=== PATIENT | female | born 1985 | race Caucasian/White ===

== ENCOUNTER 2017-01-03 00:03 | Emergency (ER) | payer MEDICAID ==
--- NOTE | 2017-01-03 00:22 | EDM.PDOC ---
ED HPI GENERAL MEDICAL PROBLEM - General Chief Complaint: PHARMACY SERVICES DIRECTOR Problem Stated Complaint: abd pain w/ Time Seen by Provider: 01/03/17 00:10 Source of Information: Reports: Patient History Limitations: Reports: No Limitations - History of Present Illness INITIAL COMMENTS - FREE TEXT/NARRATIVE: Patient is a 31 year old female at ~32 weeks gestation who presents to the ER via private vehicle with complaints of elevated blood pressure and sharp upper abdominal pain. She describes the pain as a constant sharp pain rated an 8 /10. The pain began around 1130. The patient reports she was unable to fall asleep because of the pain and the fact that she was worrying about her blood pressure being elevated. She reports that she began experiencing blurry vision, dizziness, nausea, and a headache around 1130 pm this evening so she checked her blood pressure at home and it was 194/130. She reports she has been taking her blood pressure medications as prescribed. She has been taking 200 mg labatelol in the morning and 100 mg labatelol in the evening. She reports that for about 3 hours after taking the medication her blood pressure is normal and then it becomes signficantly elevated again. She reports she has been on bed rest the past month due to elevated blood pressure and protein in her urine. She called her PHARMACY SERVICES DIRECTOR in [place] and was told to go to the nearest ER via ambulance. She reported she decided to come via private vehicle because it was just as close. Patient has no other associated symptoms. Denies vomiting, dysuria, diarrhea, constipation, chest pain, shortness of breath, seizure activity, edema, vaginal discharge, vaginal bleeding. Does report she also had preeclampsia with a previous . Her two previous pregnancies were delivered via at full term. Onset Date: 01/02/17 Onset Time: 11:30 Duration: Constant Location: Reports: Abdomen Quality: Reports: Sharp Improves with: Reports: None Worsens with: Reports: None Associated Symptoms: Reports: Headaches, Nausea/Vomiting (nausea), Other ( dizziness, blurred vision). 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 SERVICES DIRECTOR History: Reports: Other (See Below) Other OB/BYN History: h/o two C-sections Psychiatric History: Reports: Addiction, Depression, Emotional Problems, Psych Hospitalization(s), Suicidal Ideation - Past Surgical History Female Surgical History: Reports: Section Social & Family History - Tobacco Use Smoking Status *Q: Former Smoker Years of Tobacco use: 1 Packs/Tins Daily: 0.4 Second Hand Smoke Exposure: No - Alcohol Use Days Per Week of Alcohol Use: 0 - Recreational Drug Use Recreational Drug Use: Yes Drug Use in Last 12 Months: Yes Recreational Drug Type: Reports: Methamphetamine Recreational Drug Use Frequency: Binges ED ROS GENERAL - Review of Systems Review Of Systems: ROS reveals no pertinent complaints other than HPI. Constitutional: Reports: No Symptoms HEENT: Reports: Vision Change (blurry vsion), Other (tinnitus) Respiratory: Reports: No Symptoms Cardiovascular: Reports: Blood Pressure Problem, Dyspnea on Exertion, Lightheadedness. Denies: Chest Pain, Edema, Syncope Endocrine: Reports: No Symptoms GI/Abdominal: Reports: Abdominal Pain (upper abdomen). Denies: Constipation, Diarrhea : Reports: No Symptoms, Other (no vaginal bleeding or leaking fluid). Denies : Discharge, Dysuria, Flank Pain, Frequency, Hematuria, Incontinence, Urinary Retention Musculoskeletal: Reports: No Symptoms Skin: Reports: No Symptoms Neurological: Reports: Dizziness, Headache. Denies: Numbness, Tingling Psychiatric: Reports: No Symptoms Hematologic/Lymphatic: Reports: No Symptoms Immunologic: Reports: No Symptoms ED EXAM - Physical Exam Exam: See Below Exam Limited By: No Limitations General Appearance: Alert, WD/WN, Mild Distress Eye Exam: Bilateral Eye: EOMI, Normal Fundi, Normal Inspection, PERRL Head: Atraumatic, Normocephalic Neck: Normal Inspection, Supple, Non-Tender, Full Range of Motion Respiratory/Chest: No Respiratory Distress, Lungs Clear, Normal Breath Sounds, No Accessory Muscle Use, Chest Non-Tender Cardiovascular: Normal Peripheral Pulses, Regular Rate, Rhythm, No Edema, No Gallop, No JVD, No Murmur, No Rub, Other (elevated BP) GI/Abdominal Exam: Normal Bowel Sounds, Soft, Tender (upper abdomen), Other ( umbilical hernia, ). No: Guarding, Rigid, Rebound Rectal Exam: Deferred (Female) Exam: No: Vaginal Bleeding, Vaginal Discharge Heart Tones: Present Heart Tones per Min: 142 Movement: Active Back Exam: Normal Inspection, Full Range of Motion. No: CVA Tenderness (L), CVA Tenderness (R) Extremities: Normal Inspection, Normal Range of Motion, Non-Tender, Normal Capillary Refill, No Pedal Edema Neurological: Alert, Oriented, CN II-XII Intact, Normal Cognition, Normal Gait, Normal Reflexes, No Motor/Sensory Deficits Psychiatric: Normal Affect, Normal Mood Skin Exam: Warm, Dry, Intact, Normal Color, No Rash Lymphatic: No Adenopathy Course - Vital Signs Last Recorded V/S: Last Vital Signs Temp 99.1 F 01/03/17 00:04 Pulse 70 01/03/17 01:05 Resp 16 01/03/17 00:04 BP 166/126 H 01/03/17 01:05 Pulse Ox 96 01/03/17 00:04 - Orders/Labs/Meds Orders: Active Orders 24 hr Category Date Time Status Sodium Chloride 0.9% [Normal Saline] 500 ml Med 01/03/17 00:45 Active IV .BOLUS Medication Orders Sodium Chloride (Normal Saline) 500 mls @ 25 mls/hr IV .BOLUS ISAIAH Last Admin: 01/03/17 00:41 Dose: 25 mls/hr Labs: Laboratory Tests 01/03/17 01/03/17 01/03/17 Range/Units 00:35 00:35 00:35 WBC 10.0 (5.0-10.0) 10^3/uL RBC 4.00 (4.00-5.50) 10^6/uL Hgb 12.3 (12.0-16.0) g/dL Hct 35.7 L (37.0-47.0) % MCV 89.3 (82.0-94.0) fL MCH 30.8 (27.0-32.0) pg MCHC 34.5 (33.0-38.0) g/dL RDW Coeff of Evangel[place] 15.0 (11.0-15.0) % Plt Count 219 (150-400) 10^3/uL Neut % (Auto) 75.5 (35-85) % Lymph % (Auto) 17.6 (10-55) % [place] % (Auto) 5.5 (0-16) % Eos % (Auto) 1.3 (0-5) % Baso % (Auto) 0.1 (0-3) % Neut # (Auto) 7.51 H (1.80-7.00) 10^3/uL Lymph # (Auto) 1.75 (1.00-4.80) 10^3/uL [place] # (Auto) 0.55 (0.00-0.80) 10^3/uL Eos # (Auto) 0.13 (0.00-0.45) 10^3/uL Baso # (Auto) 0.01 10^3/uL PT 10.1 (9.7-12.3) SEC INR 0.94 (0.92-1.18) Sodium 137 (136-145) mEq/L Potassium 3.7 (3.5-5.0) mEq/L Chloride 104 (98-106) mEq/L Carbon Dioxide 21 (21-32) mmol/L BUN 9 (7-18) mg/dL Creatinine 0.7 (0.6-1.0) mg/dL Est Cr Clr Drug Dosing 106.70 mL/min Estimated GFR (MDRD) > 60 (>=60) mL/min Glucose 124 H (75-99) mg/dL Calcium 9.2 (8.4-10.1) mg/dL Total Bilirubin 0.5 (0.0-1.0) mg/dL AST 13 L (15-37) U/L ALT 17 (12-78) U/L Alkaline Phosphatase 53 (46-116) U/L Total Protein 6.9 (6.4-8.2) g/dL Albumin 2.5 L (3.4-5.0) g/dL Urine Color (YELLOW) Urine Appearance (CLEAR) Urine pH (4.5-8.0) Ur Specific [place] (1.003-1.020) Urine Protein (NEGATIVE) mg/dL Urine Glucose (UA) (NEGATIVE) mg/dL Urine Ketones (NEGATIVE) mg/dL Urine Occult Blood (NEGATIVE) Urine Nitrite (NEGATIVE) Urine Bilirubin (NEGATIVE) Urine Urobilinogen (0.2-1.0) EU/dL Ur Leukocyte Esterase (NEGATIVE) Urine RBC (0-5) /HPF Urine WBC (0-5) /HPF Urine Bacteria (NOT SEEN) /HPF 01/03/17 Range/Units 00:35 WBC (5.0-10.0) 10^3/uL RBC (4.00-5.50) 10^6/uL Hgb (12.0-16.0) g/dL Hct (37.0-47.0) % MCV (82.0-94.0) fL MCH (27.0-32.0) pg MCHC (33.0-38.0) g/dL RDW Coeff of [place] (11.0-15.0) % Plt Count (150-400) 10^3/uL Neut % (Auto) (35-85) % Lymph % (Auto) (10-55) % [place] % (Auto) (0-16) % Eos % (Auto) (0-5) % Baso % (Auto) (0-3) % Neut # (Auto) (1.80-7.00) 10^3/uL Lymph # (Auto) (1.00-4.80) 10^3/uL [place] # (Auto) (0.00-0.80) 10^3/uL Eos # (Auto) (0.00-0.45) 10^3/uL Baso # (Auto) 10^3/uL PT (9.7-12.3) SEC INR (0.92-1.18) Sodium (136-145) mEq/L Potassium (3.5-5.0) mEq/L Chloride (98-106) mEq/L Carbon Dioxide (21-32) mmol/L BUN (7-18) mg/dL Creatinine (0.6-1.0) mg/dL Est Cr Clr Drug Dosing mL/min Estimated GFR (MDRD) (>=60) mL/min Glucose (75-99) mg/dL Calcium (8.4-10.1) mg/dL Total Bilirubin (0.0-1.0) mg/dL AST (15-37) U/L ALT (12-78) U/L Alkaline Phosphatase (46-116) U/L Total Protein (6.4-8.2) g/dL Albumin (3.4-5.0) g/dL Urine Color Yellow (YELLOW) Urine Appearance Cloudy (CLEAR) Urine pH 6.5 (4.5-8.0) Ur Specific [place] 1.015 (1.003-1.020) Urine Protein Negative (NEGATIVE) mg/dL Urine Glucose (UA) Negative (NEGATIVE) mg/dL Urine Ketones Negative (NEGATIVE) mg/dL Urine Occult Blood Negative (NEGATIVE) Urine Nitrite Negative (NEGATIVE) Urine Bilirubin Negative (NEGATIVE) Urine Urobilinogen 0.2 (0.2-1.0) EU/dL Ur Leukocyte Esterase Negative (NEGATIVE) Urine RBC Not seen (0-5) /HPF Urine WBC Not seen (0-5) /HPF Urine Bacteria Moderate H (NOT SEEN) /HPF Meds: Medications Generic Name Dose Route Start Last Admin Trade Name Freq PRN Reason Stop Dose Admin Sodium Chloride 500 mls @ 25 mls/hr 01/03/17 00:45 01/03/17 00:41 Normal Saline IV 25 mls/hr .BOLUS ISAIAH Administration Discontinued Medications Generic Name Dose Route Start Last Admin Trade Name Freq PRN Reason Stop Dose Admin Acetaminophen 650 mg 01/03/17 02:11 01/03/17 02:15 Tylenol PO 01/03/17 02:12 650 mg NOW ONE Administration Acetaminophen Confirm 01/03/17 02:06 Tylenol Administered 01/03/17 02:07 Dose 650 mg .ROUTE .STK-MED ONE Labetalol HCl 20 mg 01/03/17 00:24 01/03/17 00:42 Normodyne IVPUSH 01/03/17 00:25 20 mg ONETIME ONE Administration Protocol Labetalol HCl 40 mg 01/03/17 00:58 01/03/17 01:05 Normodyne IVPUSH 01/03/17 00:59 40 mg NOW STA Administration Protocol - Re-Assessments/Exams Free Text/Narrative Re-Assessment/Exam: 01/03/17 01:00 Consulted with [facility]. Discussed case with Dr. Alyse Mcwilliams ([facility]), who accepted patient for transfer. Given elevated blood pressure and constant sharp upper abdominal pain without capability to ultrasound, recommend patient be transferred via air. 01/03/17 01:05 Called [facility] who will arrange for transportation. 01/03/17 01:07 Discussed labs with patient. Discussed plan of care. Risks and benefits of transfer discussed with patient. Risks of transfer include severe blood pressure elevation, worsening of condition, labor, delivery, demise, air craft crash, and enroute. Benefits of transfer include PHARMACY SERVICES DIRECTOR speciality care and intervention. Risks of non-transfer include delivery, demise, of patient and baby, not getting appropriate PHARMACY SERVICES DIRECTOR care. Benefits of non- transfer include staying in familiar environment and close to home. Patient verbalized understanding that benefit outweighs risk and is in agreement with transfer. 01/03/17 01:45 Call from [facility] that helicopter is 36 minutes away from landing at our facility. 01/03/17 02:12 Patient continues to c/o 8/10 sharp constant pain to upper abdomen. Patient also complains of headache. Tylenol administered. [facility] update- 8 minutes out. Blood pressure WNL. 01/03/17 02:34 [facility] assessing scene. Ready for transfer. Departure - Departure Time of Disposition: 02:14 Disposition: DC/Tfer to Acute Hospital 02 Condition: Fair Clinical Impression: -induced benign hypertension in third trimester, Abdominal pain during in third trimester - Discharge Information Referrals: Dylan Solorzano MD [Primary Care Provider] - Forms: ED Department Discharge - Problem List & Annotations (1) -induced benign hypertension in third trimester SNOMED Code(s): 81219462, 35712922 Code(s): O13.3 - GESTATIONAL HTN W/O SIGNIFICANT PROTEINURIA, THIRD TRIMESTER Status: Acute Priority: High Current Visit: Yes (2) Abdominal pain during in third trimester SNOMED Code(s): 230510321 Code(s): O26.893 - OTH RELATED CONDITIONS, THIRD TRIMESTER; R10.9 - UNSPECIFIED ABDOMINAL PAIN Status: Acute Priority: High Current Visit: Yes - Problem List Review Problem List Initiated/Reviewed/Updated: Yes - My Orders Last 24 Hours: My Active Orders 01/03/17 00:45 Sodium Chloride 0.9% [Normal Saline] 500 ml IV .BOLUS - Assessment/Plan Last 24 Hours: My Active Orders 01/03/17 00:45 Sodium Chloride 0.9% [Normal Saline] 500 ml IV .BOLUS Plan: BP stable at time of transfer. Administered a 20 mg and 40 mg dose of labatelol. See nurses notes. Tylenol administered for pain. Transfer via helicopter to [facility]. Dr. Alyse Mciwlliams accepting PHARMACY SERVICES DIRECTOR
[2017-01-03] MEDS ORDERED: Labetalol 100 MG/20 ML MDV IVPUSH ONE (00:24)
[2017-01-03] MEDS ORDERED: Sodium Chloride 0.9% 500 ML IV SCH (00:45)
[2017-01-03 00:52] LABS: CHLORIDE,CL 104 mEq/L (98-106); SODIUM,NA 137 mEq/L (136-145)
[2017-01-03] MEDS ORDERED: Labetalol 100 MG/20 ML MDV IVPUSH STA (00:58)
[2017-01-03 01:05] VITALS: BP 166/126
[2017-01-03] MEDS ORDERED: Acetaminophen 325 MG Tab ONE (02:06)
[2017-01-03] MEDS ORDERED: Acetaminophen 325 MG Tab PO ONE (02:11)
== END 2017-01-03 02:35 ==
LOC: CC.ED 00:03
DX: O13.3 Gestational [pregnancy-induced] hypertension without significant proteinuria, third trimester (principal); O26.93 Pregnancy related conditions, unspecified, third trimester; R10.9 Unspecified abdominal pain; Z87.891 Personal history of nicotine dependence; Z3A.32 32 weeks gestation of pregnancy
CPT/HCPCS: 36415; 80053; 81001; 85025; 85610; 96361; 96374; 99285; A9270; J7040

== ENCOUNTER 2019-10-03 07:14 | Emergency (ER) | payer MEDICAID ==
[2019-10-03 07:26] VITALS: PULSE 70
[2019-10-03 07:44] VITALS: BP 148/95
--- NOTE | 2019-10-03 07:46 | EDM.PDOC ---
ED HPI GENERAL MEDICAL PROBLEM - General Chief Complaint: Abdominal Pain Stated Complaint: abd Time Seen by Provider: 10/03/19 07:40 Source of Information: Reports: Patient History Limitations: Reports: No Limitations - History of Present Illness INITIAL COMMENTS - FREE TEXT/NARRATIVE: States that she has had increasing lower abdominal pain that is progressively getting worse over the last 3 months. It gets worse with her periods and her periods have been much worse. She will have pain and then have "bloody slimy" discharge noted. She states that about midnight last night t was getting worse until she came to the ER for evaluation. She denies any fevers with it. Has history of ovarian cysts with her daughter. 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 Psychiatric History: Reports: Addiction, Depression, Emotional Problems, Psych Hospitalization(s), Suicidal Ideation - Past Surgical History GI Surgical History: Reports: Cholecystectomy, Colonoscopy, Hernia, Abdominal Other GI Surgeries/Procedures: cholecystectomy in 2009 Female Surgical History: Reports: Section Social & Family History - Family History Family Medical History: Noncontributory - Tobacco Use Smoking Status *Q: Never Smoker - Caffeine Use Caffeine Use: Reports: None - Recreational Drug Use Recreational Drug Use: No - Living Situation & Occupation Living situation: Reports: with Significant Other ED ROS GENERAL - Review of Systems Review Of Systems: See Below Constitutional: Denies: Fever, Chills HEENT: Reports: No Symptoms Respiratory: Reports: No Symptoms Cardiovascular: Reports: No Symptoms GI/Abdominal: Reports: Abdominal Pain. Denies: Constipation, Diarrhea : Reports: Discharge, Pain Musculoskeletal: Reports: No Symptoms Skin: Reports: No Symptoms Neurological: Reports: No Symptoms ED EXAM, GI/ABD - Physical Exam Exam: See Below Exam Limited By: No Limitations General Appearance: Alert, WD/WN, No Apparent Distress Ears: Normal External Exam Throat/Mouth: Normal Inspection, Normal Oropharynx Head: Atraumatic, Normocephalic Neck: Normal Inspection, Supple Respiratory/Chest: No Respiratory Distress, Lungs Clear Cardiovascular: Regular Rate, Rhythm, No Edema GI/Abdominal Exam: Normal Bowel Sounds, Soft, Tender (to lower quadrants bilaterally.) (Female) Exam: Normal External Exam, Normal Speculum Exam, Adnexal Tenderness (worse on the right than on the left), Cervical Discharge (minimal). No: Enlarged Uterus, Vaginal Bleeding Back Exam: No: CVA Tenderness (L), CVA Tenderness (R) Extremities: Normal Inspection, Normal Range of Motion Neurological: Alert, Oriented Skin Exam: Warm, Dry Course - Vital Signs Last Recorded V/S: Last Vital Signs Temp 96.7 F L 10/03/19 07:22 Pulse 70 10/03/19 07:22 Resp 18 10/03/19 07:22 BP 148/95 H 10/03/19 07:22 Pulse Ox 96 10/03/19 07:22 - Orders/Labs/Meds Orders: Active Orders 24 hr Category Date Time Status Pelvis Non OB Comp [US] Stat Exams 10/03/19 07:50 Taken Transvaginal Non OB [US] Stat Exams 10/03/19 07:50 Taken CULTURE GENITAL [RM] Stat Lab 10/03/19 07:51 Received CULTURE URINE [RM] Stat Lab 10/03/19 07:31 Received Labs: Laboratory Tests 10/03/19 10/03/19 10/03/19 Range/Units 07:31 07:40 07:40 WBC 8.4 (5.0-10.0) 10^3/uL RBC 4.28 (4.00-5.50) 10^6/uL Hgb 13.8 (12.0-16.0) g/dL Hct 38.9 (37.0-47.0) % MCV 90.9 (82.0-94.0) fL MCH 32.2 H (27.0-32.0) pg MCHC 35.5 (33.0-38.0) g/dL RDW Coeff of [place] 14.1 (11.0-15.0) % Plt Count 204 (150-400) 10^3/uL Neut % (Auto) 67.1 (35-85) % Lymph % (Auto) 24.1 (10-55) % [place] % (Auto) 7.4 (0-16) % Eos % (Auto) 1.2 (0-5) % Baso % (Auto) 0.2 (0-3) % Neut # (Auto) 5.63 (1.80-7.00) 10^3/uL Lymph # (Auto) 2.02 (1.00-4.80) 10^3/uL [place] # (Auto) 0.62 (0.00-0.80) 10^3/uL Eos # (Auto) 0.10 (0.00-0.45) 10^3/uL Baso # (Auto) 0.02 10^3/uL C-Reactive Protein 3.4 H (0.2-0.8) mg/dL Urine Color Yellow (YELLOW) Urine Appearance Cloudy (CLEAR) Urine pH 6.5 (4.5-8.0) Ur Specific [place] 1.020 (1.003-1.020) Urine Protein 100 H (NEGATIVE) mg/dL Urine Glucose (UA) Negative (NEGATIVE) mg/dL Urine Ketones Negative (NEGATIVE) mg/dL Urine Occult Blood Moderate H (NEGATIVE) Urine Nitrite Negative (NEGATIVE) Urine Bilirubin Negative (NEGATIVE) Urine Urobilinogen 0.2 (0.2-1.0) EU/dL Ur Leukocyte Esterase Large H (NEGATIVE) Urine RBC 0-5 (0-5) /HPF Urine WBC 75-100 H (0-5) /HPF Urine WBC Clumps Many H (NOT SEEN) /HPF Ur Epithelial Cells Few H (NOT SEEN) /HPF Urine Bacteria Few H (NOT SEEN) /HPF Urine HCG, Qual 10/03/19 Range/Units 07:51 WBC (5.0-10.0) 10^3/uL RBC (4.00-5.50) 10^6/uL Hgb (12.0-16.0) g/dL Hct (37.0-47.0) % MCV (82.0-94.0) fL MCH (27.0-32.0) pg MCHC (33.0-38.0) g/dL RDW Coeff of [place] (11.0-15.0) % Plt Count (150-400) 10^3/uL Neut % (Auto) (35-85) % Lymph % (Auto) (10-55) % [place] % (Auto) (0-16) % Eos % (Auto) (0-5) % Baso % (Auto) (0-3) % Neut # (Auto) (1.80-7.00) 10^3/uL Lymph # (Auto) (1.00-4.80) 10^3/uL [place] # (Auto) (0.00-0.80) 10^3/uL Eos # (Auto) (0.00-0.45) 10^3/uL Baso # (Auto) 10^3/uL C-Reactive Protein (0.2-0.8) mg/dL Urine Color (YELLOW) Urine Appearance (CLEAR) Urine pH (4.5-8.0) Ur Specific [place] (1.003-1.020) Urine Protein (NEGATIVE) mg/dL Urine Glucose (UA) (NEGATIVE) mg/dL Urine Ketones (NEGATIVE) mg/dL Urine Occult Blood (NEGATIVE) Urine Nitrite (NEGATIVE) Urine Bilirubin (NEGATIVE) Urine Urobilinogen (0.2-1.0) EU/dL Ur Leukocyte Esterase (NEGATIVE) Urine RBC (0-5) /HPF Urine WBC (0-5) /HPF Urine WBC Clumps (NOT SEEN) /HPF Ur Epithelial Cells (NOT SEEN) /HPF Urine Bacteria (NOT SEEN) /HPF Urine HCG, Qual Negative Meds: Medications Discontinued Medications Generic Name Dose Route Start Last Admin Trade Name Freq PRN Reason Stop Dose Admin Sodium Chloride 1,000 mls @ 999 mls/hr 10/03/19 07:59 10/03/19 08:59 Normal Saline IV 10/03/19 08:59 999 mls/hr .BOLUS ONE Administration Levofloxacin/Dextrose 500 mg/ 100 mls @ 100 mls/hr 10/03/19 09:58 10/03/19 10:05 Premix IV 10/03/19 10:57 100 mls/hr ONETIME ONE Administration Ketorolac Tromethamine 30 mg 10/03/19 08:45 10/03/19 08:48 Toradol IVPUSH 10/03/19 08:46 30 mg ONETIME ONE Administration Ondansetron HCl 4 mg 10/03/19 09:00 10/03/19 09:23 Zofran IVPUSH 10/03/19 09:01 4 mg NOW STA Administration - Re-Assessments/Exams Free Text/Narrative Re-Assessment/Exam: 10/03/19 1045 In to discuss results of pelvic US as normal without cysts noted. She does have UTI on lab results which we will treat with IV dose of levaquin and liter of fluids. Departure - Departure Time of Disposition: 11:07 Disposition: Home, Self-Care 01 Condition: Good Clinical Impression: UTI (urinary tract infection) Qualifiers: Urinary tract infection type: acute cystitis Hematuria presence: with hematuria Qualified Code(s): N30.01 - Acute cystitis with hematuria - Discharge Information *PRESCRIPTION DRUG MONITORING PROGRAM REVIEWED*: Not Applicable *COPY OF PRESCRIPTION DRUG MONITORING REPORT IN PATIENT ROCIO: Not Applicable Instructions: Urinary Tract Infection, Adult Referrals: Joselyn Riggs PA-C [Primary Care Provider] - Forms: ED Department Discharge Additional Instructions: Push fluids as much as possible levaquin 250 mg daily for 10 days tylenol or advil as needed for discomfort will call with culture report when available. Sepsis Event Note (ED) - Evaluation Sepsis Screening Result: No Definite Risk - Problem List & Annotations (1) UTI (urinary tract infection) SNOMED Code(s): 57129175 Code(s): N39.0 - URINARY TRACT INFECTION, SITE NOT SPECIFIED Status: Acute Qualifiers: Urinary tract infection type: acute cystitis Hematuria presence: with hematuria Qualified Code(s): N30.01 - Acute cystitis with hematuria - Problem List Review Problem List Initiated/Reviewed/Updated: Yes - My Orders Last 24 Hours: My Active Orders 10/03/19 07:31 CULTURE URINE [RM] Stat 10/03/19 07:50 Pelvis Non OB Comp [US] Stat Transvaginal Non OB [US] Stat 10/03/19 07:51 CULTURE GENITAL [RM] Stat - Assessment/Plan Last 24 Hours: My Active Orders 10/03/19 07:31 CULTURE URINE [RM] Stat 10/03/19 07:50 Pelvis Non OB Comp [US] Stat Transvaginal Non OB [US] Stat 10/03/19 07:51 CULTURE GENITAL [RM] Stat
[2019-10-03] MEDS ORDERED: Sodium Chloride 0.9% 1,000 ML IV ONE (07:59)
[2019-10-03] MEDS ORDERED: Ketorolac 30 MG/ML SDV IVPUSH ONE (08:45)
[2019-10-03] MEDS ORDERED: Ondansetron 4 MG/2 ML SDV IVPUSH STA (09:00)
[2019-10-03] MEDS ORDERED: Levofloxacin/Dextrose 5%-Water 500 MG in Premix Bag 1 BAG IV ONE (09:58)
== END 2019-10-03 11:35 | disposition home or self-care (01) ==
LOC: CC.ED 07:14
DX: N30.01 Acute cystitis with hematuria (principal); I10 Essential (primary) hypertension
CPT/HCPCS: 36415; 76830; 76856; 81001; 81025; 85025; 86140; 87070; 87086; 87088; 87186; 96365; 96375; 99284-25; J1885; J1956; J2405; J7030

== ENCOUNTER 2020-06-18 13:23 | Emergency (ER) | payer MEDICAID ==
--- NOTE | 2020-06-18 14:24 | EDM.PDOC ---
ED HPI GENERAL MEDICAL PROBLEM - General Chief Complaint: General Stated Complaint: HIGH BLOOD PRESSURE Time Seen by Provider: 06/18/20 14:05 Source of Information: Reports: Patient, RN History Limitations: Reports: No Limitations - History of Present Illness INITIAL COMMENTS - FREE TEXT/NARRATIVE: States that she has been having difficulty controlling her BP for the last 3 mon ths and has had several med changes and has been on the current regime for about a month and her BP has been fairly stable. Today she felt hot and a little dizzy so took her BP with a wrist cuff and it was 255/238 so came to the ER. When arriving here her BP was initially 144/86. Currently she has appt to see cardiology, nephrology, GI and primary care in [place]. She is also scheduled for sleep study as part of her workup as to why her BP is suddenly so high. Currently she is feeling well. 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[employer] [place]ILN History: h/o two C-sections Psychiatric History: Reports: Addiction, Depression, Emotional Problems, Psych Hospitalization(s), Suicidal Ideation - Past Surgical History GI Surgical History: Reports: Cholecystectomy, Colonoscopy, Hernia, Abdominal Other GI Surgeries/Procedures: cholecystectomy in 2009 Female Surgical History: Reports: Section Social & Family History - Family History Family Medical History: No Pertinent Family History - Tobacco Use Tobacco Use Status *Q: Former Tobacco User Years of Tobacco use: 1 Packs/Tins Daily: 1 Used Tobacco, but Quit: Yes Month/Year Tobacco Last Used: 4 - Caffeine Use Caffeine Use: Reports: Soda - Recreational Drug Use Recreational Drug Use: No - Living Situation & Occupation Living situation: Reports: with Significant Other ED ROS GENERAL - Review of Systems Review Of Systems: See Below Constitutional: Denies: Fever, Chills Respiratory: Reports: No Symptoms Cardiovascular: Reports: No Symptoms GI/Abdominal: Denies: Abdominal Pain Musculoskeletal: Reports: No Symptoms Neurological: Reports: Headache. Denies: Confusion, Dizziness ED EXAM, GENERAL - Physical Exam Exam: See Below Exam Limited By: No Limitations General Appearance: Alert, WD/WN, No Apparent Distress Ears: Normal Canal, Normal TMs Throat/Mouth: Normal Inspection, Normal Oropharynx Head: Atraumatic, Normocephalic Neck: Normal Inspection, Supple, Non-Tender, Full Range of Motion Respiratory/Chest: No Respiratory Distress, Lungs Clear Cardiovascular: Regular Rate, Rhythm, No Edema GI/Abdominal: Soft Extremities: No Pedal Edema, Normal Capillary Refill Neurological: Alert, Oriented Skin Exam: Warm, Dry #1 Interpretation EKG Date: 06/18/20 Rhythm: NSR [place]: Normal P-Wave: Present QRS: Normal ST-T: Normal QT: Normal Comparison: NA - No Prior EKG Course - Vital Signs Last Recorded V/S: Last Vital Signs Temp 98.4 F 06/18/20 13:52 Pulse 73 06/18/20 13:52 Resp 18 06/18/20 13:52 BP 144/86 H 06/18/20 13:52 Pulse Ox 96 06/18/20 13:52 - Orders/Labs/Meds Orders: Active Orders 24 hr Category Date Time Status BASIC METABOLIC PANEL,BMP [CHEM] Stat Lab 06/18/20 14:10 Ordered CBC WITH AUTO DIFF [HEME] Stat Lab 06/18/20 14:10 Ordered CREATINE KINASE,CK [CHEM] Stat Lab 06/18/20 14:10 Ordered LACTATE DEHYDROGENASE,LDH [CHEM] Stat Lab 06/18/20 14:10 Ordered TROPONIN I [CHEM] Stat Lab 06/18/20 14:10 Ordered EKG 12 Lead [EK] Stat Ther 06/18/20 13:53 Ordered - Re-Assessments/Exams Free Text/Narrative Re-Assessment/Exam: 06/18/20 14:42 In to discuss the lab results and the EKG results as normal Will discharge at this time. Departure - Departure Time of Disposition: 14:42 Disposition: Home, Self-Care 01 Condition: Good Clinical Impression: Hypertension Qualifiers: Hypertension type: essential hypertension Qualified Code(s): I10 - Essential (primary) hypertension - Discharge Information *PRESCRIPTION DRUG MONITORING PROGRAM REVIEWED*: Not Applicable *COPY OF PRESCRIPTION DRUG MONITORING REPORT IN PATIENT ROCIO: Not Applicable Instructions: Managing Your Hypertension Additional Instructions: encouraged her to get a BP cuff that goes around her arm rather than wrist. Bring to next appt to compare as to what they match up to If any symptoms reoccur then return to the clinic or the ER Sepsis Event Note (ED) - Evaluation Sepsis Screening Result: No Definite Risk - Focused Exam Vital Signs: Vital Signs Temp Pulse Resp BP Pulse Ox 06/18/20 13:52 98.4 F 73 18 144/86 H 96 - Problem List & Annotations (1) Hypertension SNOMED Code(s): 14789767 Code(s): I10 - ESSENTIAL (PRIMARY) HYPERTENSION Status: Acute Priority: High Qualifiers: Hypertension type: essential hypertension Qualified Code(s): I10 - Essential (primary) hypertension - Problem List Review Problem List Initiated/Reviewed/Updated: Yes - My Orders Last 24 Hours: My Active Orders 06/18/20 13:53 EKG 12 Lead [EK] Stat 06/18/20 14:10 BASIC METABOLIC PANEL,BMP [CHEM] Stat CBC WITH AUTO DIFF [HEME] Stat CREATINE KINASE,CK [CHEM] Stat LACTATE DEHYDROGENASE,LDH [CHEM] Stat TROPONIN I [CHEM] Stat - Assessment/Plan Last 24 Hours: My Active Orders 06/18/20 13:53 EKG 12 Lead [EK] Stat 06/18/20 14:10 BASIC METABOLIC PANEL,BMP [CHEM] Stat CBC WITH AUTO DIFF [HEME] Stat CREATINE KINASE,CK [CHEM] Stat LACTATE DEHYDROGENASE,LDH [CHEM] Stat TROPONIN I [CHEM] Stat
[2020-06-18 14:37] LABS: CHLORIDE,CL 103 mEq/L (98-106); SODIUM,NA 143 mEq/L (136-145)
[2020-06-18 14:59] VITALS: BP 148/83; PULSE 67
== END 2020-06-18 14:50 | disposition home or self-care (01) ==
LOC: CC.ED 13:23
DX: I10 Essential (primary) hypertension (principal); Z87.891 Personal history of nicotine dependence
CPT/HCPCS: 36415; 80048; 82550; 83615; 84484; 85025; 93005; 99283-25

== ENCOUNTER 2020-06-23 20:57 | Observation (INO) | payer MEDICAID ==
[2020-06-23] MEDS ORDERED: cloNIDine 0.1 MG Tab PO STA (21:36)
--- NOTE | 2020-06-23 22:29 | EDM.PDOC ---
ED HPI GENERAL MEDICAL PROBLEM - General Chief Complaint: General Stated Complaint: severe headache Time Seen by Provider: 06/23/20 21:25 Source of Information: Reports: Patient History Limitations: Reports: No Limitations - History of Present Illness INITIAL COMMENTS - FREE TEXT/NARRATIVE: Jessica is a 34 yo female who presents to the ED with complaints of a right sided headache since Monday. She states she has been dealing with high blood pressure for the last 3 months. Has had multiple tests done as she has been having erratic blood pressures. She admits the same thing happened to her at onset and had a dull with occasional sharp headaches to the right side of her forehead. She admits tonight it was the worst it has been. She is scheduled to see cardiology, nephrology, family practice and gastroenterology on Monday at [facility]. She is currently taking 4 different blood pressure medications. States she has been multiple different doses in the past and seems if they increase some she will get low blood pressures. She has underwent ultrasound of the kidney which didn't show any problems with the renal arteries. States she did have a benign mass on one of her kidneys but they didn't feel it was causing her high blood pressure. Admits to history of thyroid disease and had been on levothyroxine in the past but nothing as of recently. States they told her that her thyroid is normal. She has also had a Holter monitor when she was in [place] but hasn't received the results of those tests. She was recently seen by optometry and was told she has an astigmatism and is waiting for glasses. She states she was cooking tonight and started to get a severe pain. Denies any light sensitivities. States her right eye seems blurrier than the left. She admits to ringing in her right ear as well. Doesn't get it in the left ear. 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 Psychiatric History: Reports: Addiction, Depression, Emotional Problems, Psych Hospitalization(s), Suicidal Ideation - Past Surgical History GI Surgical History: Reports: Cholecystectomy, Colonoscopy, Hernia, Abdominal Other GI Surgeries/Procedures: cholecystectomy in 2010 Female Surgical History: Reports: Section Social & Family History - Family History Family Medical History: No Pertinent Family History - Tobacco Use Tobacco Use Status *Q: Former Tobacco User Years of Tobacco use: 1 Packs/Tins Daily: 1 Used Tobacco, but Quit: Yes Month/Year Tobacco Last Used: 14 mos - Caffeine Use Caffeine Use: Reports: None - Living Situation & Occupation Living situation: Reports: with Significant Other ED ROS GENERAL - Review of Systems Review Of Systems: Comprehensive ROS is negative, except as noted in HPI. Cardiovascular: Reports: Blood Pressure Problem. Denies: Chest Pain, Dyspnea on Exertion, Lightheadedness, Palpitations Neurological: Reports: Headache, Pre-Existing Deficit. Denies: Trouble Speaking, Difficulty Walking, Change in Speech Psychiatric: Reports: No Symptoms ED EXAM, GENERAL - Physical Exam Exam: See Below Exam Limited By: No Limitations General Appearance: Alert, No Apparent Distress Eye Exam: Bilateral Eye: EOMI, Normal Inspection, PERRL Ears: Normal External Exam, Normal Canal, Hearing Grossly Normal, Normal TMs Nose: Normal Inspection, Normal Mucosa, No Blood Throat/Mouth: Normal Inspection, Normal Lips, Normal Teeth, Normal Voice, No Airway Compromise Head: Atraumatic, Normocephalic Neck: Normal Inspection, Supple Respiratory/Chest: No Respiratory Distress, Lungs Clear, Normal Breath Sounds, No Accessory Muscle Use Cardiovascular: Normal Peripheral Pulses, Regular Rate, Rhythm, No Edema, No Gallop GI/Abdominal: Normal Bowel Sounds, Soft, Non-Tender, No Organomegaly, No Distention Extremities: Normal Inspection, No Pedal Edema Neurological: Alert, Oriented, CN II-XII Intact, Normal Cognition, No Motor/Sensory Deficits Psychiatric: Normal Affect, Normal Mood Skin Exam: Warm, Dry, Intact, Normal Color Course - Vital Signs Last Recorded V/S: Last Vital Signs Temp 98.5 F 04/27/21 22:12 Pulse 64 06/23/20 22:12 Resp 16 06/23/20 22:12 BP 148/98 H 06/23/20 22:12 Pulse Ox 97 06/23/20 22:12 - Orders/Labs/Meds Orders: Active Orders 24 hr Category Date Time Status Patient Status Manage Transfer [TRANSFER] Routine ADT 06/24/20 00:07 Active Head wo Cont [CT] Stat Exams 06/23/20 22:03 Taken Resuscitation Status Routine Resus Stat 06/24/20 00:08 Ordered Labs: Laboratory Tests 06/23/20 06/23/20 06/23/20 Range/Units 22:03 22:03 22:57 WBC 9.5 (5.0-10.0) 10^3/uL RBC 3.98 L (4.00-5.50) 10^6/uL Hgb 12.6 (12.0-16.0) g/dL Hct 35.6 L (37.0-47.0) % MCV 89.4 (82.0-94.0) fL MCH 31.7 (27.0-32.0) pg MCHC 35.4 (33.0-38.0) g/dL RDW Coeff of Evangelina 13.2 (11.0-15.0) % Plt Count 260 (150-400) 10^3/uL Neut % (Auto) 68.0 (35-85) % Lymph % (Auto) 25.0 (10-55) % [place] % (Auto) 5.4 (0-16) % Eos % (Auto) 1.4 (0-5) % Baso % (Auto) 0.2 (0-3) % Neut # (Auto) 6.47 (1.80-7.00) 10^3/uL Lymph # (Auto) 2.38 (1.00-4.80) 10^3/uL [place] # (Auto) 0.51 (0.00-0.80) 10^3/uL Eos # (Auto) 0.13 (0.00-0.45) 10^3/uL Baso # (Auto) 0.02 10^3/uL ESR 32 H (0-20) mm/hr Sodium 138 (136-145) mEq/L Potassium 3.6 (3.5-5.0) mEq/L Chloride 100 (98-106) mEq/L Carbon Dioxide 27 (21-32) mmol/L BUN 22 H (7-18) mg/dL Creatinine 1.3 H (0.6-1.0) mg/dL Est Cr Clr Drug Dosing 55.90 mL/min Estimated GFR (MDRD) 47 L (>=60) mL/min Glucose 107 H (75-99) mg/dL Calcium 9.3 (8.4-10.1) mg/dL Urine Color Light yellow (YELLOW) Urine Appearance Clear (CLEAR) Urine pH 5.5 (4.5-8.0) Ur Specific [place] 1.010 (1.003-1.020) Urine Protein Negative (NEGATIVE) mg/dL Urine Glucose (UA) Negative (NEGATIVE) mg/dL Urine Ketones Negative (NEGATIVE) mg/dL Urine Occult Blood Negative (NEGATIVE) Urine Nitrite Negative (NEGATIVE) Urine Bilirubin Negative (NEGATIVE) Urine Urobilinogen 0.2 (0.2-1.0) EU/dL Ur Leukocyte Esterase Negative (NEGATIVE) Urine RBC Not seen (0-5) /HPF Urine WBC Not seen (0-5) /HPF Meds: Medications Discontinued Medications Generic Name Dose Route Start Last Admin Trade Name Freq PRN Reason Stop Dose Admin Clonidine HCl 0.1 mg 06/23/20 21:36 06/23/20 21:38 Clonidine 0.1 Mg Tab PO 06/23/20 21:37 0.1 mg STAT STA Administration Departure - Departure Time of Disposition: 23:07 Disposition: Refer to Observation Clinical Impression: Cluster headache syndrome Qualifiers: Headache chronicity pattern: episodic headache Intractability: not intractable Qualified Code(s): G44.019 - Episodic cluster headache, not intractable - Discharge Information *PRESCRIPTION DRUG MONITORING PROGRAM REVIEWED*: No *COPY OF PRESCRIPTION DRUG MONITORING REPORT IN PATIENT ROCIO: No Referrals: PCP,Unknown [Primary Care Provider] - Forms: ED Department Discharge Sepsis Event Note (ED) - Evaluation Sepsis Screening Result: No Definite Risk - Focused Exam Vital Signs: Vital Signs Temp Pulse Resp BP BP Pulse Ox 06/23/20 22:12 98.5 F 64 16 148/98 H 97 06/23/20 21:54 65 14 158/96 H 100 06/23/20 21:41 97.5 F 64 15 154/105 H 98 06/23/20 21:38 154/105 H 06/23/20 21:16 97.5 F 63 16 146/95 H 97 06/23/20 21:00 97.5 F 77 18 148/104 H 98 - Problem List & Annotations (1) Hypertension SNOMED Code(s): 85455604 Code(s): I10 - ESSENTIAL (PRIMARY) HYPERTENSION Status: Acute Priority: High Current Visit: No Qualifiers: Hypertension type: other secondary hypertension Qualified Code(s): I15.8 - Other secondary hypertension (2) Cluster headache syndrome SNOMED Code(s): 260401238 Code(s): G44.009 - CLUSTER HEADACHE SYNDROME, UNSPECIFIED, NOT INTRACTABLE Status: Acute Current Visit: Yes Qualifiers: Headache chronicity pattern: episodic headache Intractability: not intractable Qualified Code(s): G44.019 - Episodic cluster headache, not intractable - My Orders Last 24 Hours: My Active Orders 06/23/20 22:03 Head wo Cont [CT] Stat 06/24/20 00:07 Patient Status Manage Transfer [TRANSFER] Routine 06/24/20 00:08 Resuscitation Status Routine - Assessment/Plan Admission H&P: Please use this note as an admission H&P Last 24 Hours: My Active Orders 06/23/20 22:03 Head wo Cont [CT] Stat 06/24/20 00:07 Patient Status Manage Transfer [TRANSFER] Routine 06/24/20 00:08 Resuscitation Status Routine Plan: Laboratory work did show slightly elevated sed rate. CT of the head showed a subtle region of hypoattenuation in the right frontal lobe subcortical whit matter, which the radiologist felt was indeterminate. Did recommend having patient scheduled with neurology and/or obtaining an MRI of the brain. Did not feel it was urgent. Did state it could be some demyelinating disease, such as MS. Will admit observation to Dr. Chairez's services. Dr. chairez consulted and agrees with admission. Will give IV steroids to see if any relief with IV fluids. Will closely monitor blood pressure as well.
[2020-06-24] MEDS ORDERED: Ondansetron 4 MG/2 ML SDV IV PRN (01:05)
[2020-06-24] MEDS ORDERED: Temazepam 15 MG Cap PO PRN (01:05)
[2020-06-24] MEDS ORDERED: methylPREDNISolone Sodium Succinate 125 MG/2 ML SDV IVPUSH SCH (01:05)
[2020-06-24] MEDS ORDERED: Sodium Chloride 0.9% 1,000 ML IV SCH (01:05)
[2020-06-24] MEDS: Acetaminophen 325 MG Tab PO PRN ×5 (01:52→19:59)
[2020-06-24] MEDS: CARVEDILOL 12.5 MG PO SCH ×2 (08:48→18:07)
[2020-06-24] MEDS: LISINOPRIL 40 MG PO SCH ×2 (08:51→21:59)
[2020-06-24] MEDS: AMLODIPINE 2.5 MG PO SCH ×3 (09:11→20:32)
[2020-06-24] MEDS: CHLORTHALIDONE 25 MG PO SCH (09:21)
[2020-06-24] MEDS ORDERED: Ketorolac 30 MG/ML SDV IVPUSH PRN (10:45)
[2020-06-24] MEDS ORDERED: AMLODIPINE 2.5 MG PO SCH (20:00)
--- NOTE | 2020-06-24 23:17 | PCM.PN ---
- General Info Date of Service: 06/24/20 Subjective Update: Jessica is a 34 yo female who was admitted to the hospital from the ED last night with complaints of a headache. She has been having a dull with sharp at times headache to the right side of her head since last Monday. Patient has history of similar headache roughly 3 months ago. Admits it lasted about 8 days at that time. She has been having problems with his blood pressure as well. She currently is taking multiple medications for this. Patient has appointments on Monday with cardiology, nephrology and family medicine in [place]. Patient did have CT scan of the brain with no acute findings. Questioning of demyelinating disease and recommend follow up with neurology or MRI of the brain. Patient continues to have headache. Was given Solu Medrol and started on IV fluids yesterday. Admits to minimal relief. Continues to have a headache today. Denies any nausea or emesis today. States she is really tired. Rates the headache from 6-8 out of 10. Admits to having some blurriness in the right eye which has not worsened. Denies any new onset of neurological deficits. Functional Status: Reports: Tolerating Diet, Ambulating, Urinating - Review of Systems General: Reports: No Symptoms HEENT: Reports: Visual Changes (blurriness right eye) Pulmonary: Reports: No Symptoms Cardiovascular: Reports: No Symptoms Gastrointestinal: Reports: No Symptoms Genitourinary: Reports: No Symptoms Musculoskeletal: Reports: No Symptoms Skin: Reports: No Symptoms Neurological: Reports: Headache. Denies: Dizziness, Syncope, Difficulty Walking, Change in Speech Psychiatric: Reports: No Symptoms - Patient Data Vitals - Most Recent: Last Vital Signs Temp 97.4 F 06/24/20 20:00 Pulse 66 06/24/20 20:00 Resp 16 06/24/20 20:00 BP 108/50 L 06/24/20 22:02 Pulse Ox 93 L 06/24/20 20:00 Weight - Most Recent: 238 lb 12.8 oz Med Orders - Current: Current Medications Acetaminophen (Acetaminophen 325 Mg Tab) 650 mg PO Q4H PRN PRN Reason: Pain (Mild 1-3)/fever Last Admin: 06/24/20 19:59 Dose: 650 mg Documented by: Amlodipine Besylate (Amlodipine 2.5 Mg Tab Pt Own) 2.5 mg PO BEDTIME ISAIAH Last Admin: 06/24/20 22:02 Dose: Not Given Documented by: Carvedilol (Carvedilol 12.5 Mg Tab Pt Own) 12.5 mg PO BIDMEALS COUNT INCLUDES THE [facility] Last Admin: 06/24/20 18:07 Dose: 12.5 mg Documented by: Chlorthalidone (Chlorthalidone 25 Mg Tab Pt Own) 25 mg PO DAILY COUNT INCLUDES THE [facility] Last Admin: 06/24/20 09:21 Dose: 25 mg Documented by: Ketorolac Tromethamine (Ketorolac 30 Mg/Ml Sdv) 15 mg IVPUSH Q6H PRN PRN Reason: Headache Stop: 06/29/20 10:45 Last Admin: 06/24/20 12:25 Dose: 15 mg Documented by: Methylprednisolone Sodium Succinate (Methylprednisolone Sodium Succinate 125 Mg/2 Ml Sdv) 62.5 mg IVPUSH Q24H COUNT INCLUDES THE [facility] Last Admin: 06/24/20 01:53 Dose: 62.5 mg Documented by: Lisinopril 40 Mg Tab (Pt Own) 0 each PO BID COUNT INCLUDES THE [facility] Last Admin: 06/24/20 21:59 Dose: 1 each Documented by: Ondansetron HCl (Ondansetron 4 Mg/2 Ml Sdv) 4 mg IV Q4H PRN PRN Reason: Nausea/Vomiting Temazepam (Temazepam 15 Mg Cap) 15 mg PO BEDTIME PRN PRN Reason: Sleep Last Admin: 06/24/20 20:00 Dose: 15 mg Documented by: Discontinued Medications Amlodipine Besylate (Amlodipine 2.5 Mg Tab Pt Own) 2.5 mg PO DAILY COUNT INCLUDES THE [facility] Last Admin: 06/24/20 20:32 Dose: 2.5 mg Documented by: Clonidine HCl (Clonidine 0.1 Mg Tab) 0.1 mg PO STAT STA Stop: 06/23/20 21:37 Last Admin: 06/23/20 21:38 Dose: 0.1 mg Documented by: Sodium Chloride (Normal Saline) 1,000 mls @ 150 mls/hr IV ASDIRECTED COUNT INCLUDES THE [facility] Last Admin: 06/24/20 01:53 Dose: 150 mls/hr Documented by: - Exam General: Alert, Oriented, Cooperative, No Acute Distress Lungs: Clear to Auscultation, Normal Respiratory Effort Cardiovascular: Regular Rate, Regular Rhythm GI/Abdominal Exam: Normal Bowel Sounds, Soft Extremities: Normal Inspection, No Pedal Edema Skin: Warm, Dry, Intact Neurological: No New Focal Deficit, Normal Speech, Normal Tone, Sensation Intact Psy/Mental Status: Alert, Normal Affect, Normal Mood - Patient Data Result Diagrams: 06/23/20 22:03 06/23/20 22:03 Sepsis Event Note - Evaluation Sepsis Screening Result: No Definite Risk - Focused Exam Vital Signs: Vital Signs Temp Pulse Pulse Resp BP BP Pulse Ox 06/24/20 22:02 108/50 L 06/24/20 20:32 108/50 L 06/24/20 20:00 97.4 F 66 16 108/50 L 93 L 06/24/20 19:55 108/50 L 06/24/20 18:07 58 L 115/54 L 06/24/20 15:54 98.5 F 58 L 16 115/54 L 94 L 06/24/20 11:31 97.8 F 62 16 125/61 95 - Problem List & Annotations (1) Hypertension SNOMED Code(s): 06567171 Code(s): I10 - ESSENTIAL (PRIMARY) HYPERTENSION Status: Acute Priority: High Current Visit: No Qualifiers: Hypertension type: other secondary hypertension Qualified Code(s): I15.8 - Other secondary hypertension (2) Cluster headache syndrome SNOMED Code(s): 731664678 Code(s): G44.009 - CLUSTER HEADACHE SYNDROME, UNSPECIFIED, NOT INTRACTABLE Status: Acute Current Visit: Yes Qualifiers: Headache chronicity pattern: episodic headache Intractability: not intractable Qualified Code(s): G44.019 - Episodic cluster headache, not intractable - Problem List Review Problem List Initiated/Reviewed/Updated: Yes - My Orders Last 24 Hours: My Active Orders 06/24/20 00:08 Resuscitation Status Routine 06/24/20 01:05 Acetaminophen [TylenoL] 650 mg PO Q4H PRN Ondansetron [Zofran] 4 mg IV Q4H PRN Temazepam [Restoril] 15 mg PO BEDTIME PRN methylPREDNISolone Sod Succ [Solu-MEDROL] 62.5 mg IVPUSH Q24H 06/24/20 01:05 Patient Status [ADT] Routine Ambulate [RC] .PRN Cardiac Monitoring [RC] 08,1999 Oxygen Therapy [RC] .PRN Up ad Yvette [RC] .PRN Vital Signs [RC] 0000,0400,0800,1200,1600,2000 06/24/20 Breakfast 2 Gram Sodium Diet [DIET] 06/24/20 09:00 Chlorthalidone 25 mg PO DAILY Non-Formulary Medication [NF Drug] 0 each PO BID carvediloL [Coreg] 12.5 mg PO BIDMEALS 06/24/20 10:45 Ketorolac [Toradol] 15 mg IVPUSH Q6H PRN 06/24/20 20:00 amLODIPine [Norvasc] 2.5 mg PO BEDTIME - Plan Plan:: Patient continues to have chronic headache. Will give IV Toradol today to see if any relief. Will repeat labs in the am, will include magnesium level. Discussed patient's condition with Dr. Chairez today and will closely monitor. IV fluids will be discontinued today.
[2020-06-25] MEDS: Acetaminophen 325 MG Tab PO PRN ×2 (04:42→08:37)
[2020-06-25 07:33] LABS: CHLORIDE,CL 104 mEq/L (98-106); SODIUM,NA 142 mEq/L (136-145)
[2020-06-25] MEDS: LISINOPRIL 40 MG PO SCH (08:29)
[2020-06-25] MEDS: CARVEDILOL 12.5 MG PO SCH (08:29)
[2020-06-25] MEDS: CHLORTHALIDONE 25 MG PO SCH (08:31)
--- NOTE | 2020-06-25 10:40 | PCM.DCSUM1 ---
Discharge Summary - Hospital Course HPI Initial Comments: Jessica is a 34 yo female who was admitted to the hospital from the ED Monday night with complaints of a headache. She had been having a dull with sharp at times headache to the right side of her head since last Monday. Patient has history of similar headache roughly 3 months ago. Admits it lasted about 8 days at that time. She has been having problems with his blood pressure as well. She currently is taking multiple medications for this. Patient has appointments on Monday with cardiology, nephrology and family medicine in [place]. Patient did have CT scan of the brain with no acute findings. Questioning of demyelinating disease and recommend follow up with neurology or MRI of the brain. Diagnosis: Stroke: No - Discharge Data Discharge Date: 06/25/20 Discharge Disposition: Home, Self-Care 01 Condition: Fair - Referral to Home Health Primary Care Physician: Hoa Seo NP - Discharge Diagnosis/Problem(s) (1) Hypertension SNOMED Code(s): 88125816 ICD Code: I10 - ESSENTIAL (PRIMARY) HYPERTENSION Status: Acute Priority: High Current Visit: No Qualifiers: Hypertension type: other secondary hypertension Qualified Code(s): I15.8 - Other secondary hypertension (2) Cluster headache syndrome SNOMED Code(s): 550016254 ICD Code: G44.009 - CLUSTER HEADACHE SYNDROME, UNSPECIFIED, NOT INTRACTABLE Status: Acute Current Visit: Yes Qualifiers: Headache chronicity pattern: episodic headache Intractability: not intractable Qualified Code(s): G44.019 - Episodic cluster headache, not intractable - Patient Instructions Diet: Usual Diet as Tolerated Activity: As Tolerated Notify Provider of: Fever, Increased Pain, Nausea and/or Vomiting - Discharge Plan *PRESCRIPTION DRUG MONITORING PROGRAM REVIEWED*: No *COPY OF PRESCRIPTION DRUG MONITORING REPORT IN PATIENT ROCIO: No Prescriptions/Med Rec: Acetaminophen/HYDROcodone [[place] 325-5 MG] 1 tab PO Q6H #12 tablet Home Medications: Home Meds Chlorthalidone 25 mg PO DAILY 06/18/20 [History] carvediloL [Coreg] 12.5 mg PO BID 06/18/20 [History] lisinopriL [Lisinopril] 20 mg PO BID 06/18/20 [History] Acetaminophen/HYDROcodone [[place] 325-5 MG] 1 tab PO Q6H #12 tablet 06/25/20 [Rx] Patient Handouts: Pseudotumor Cerebri, Hypertension, Adult Forms: ED Department Discharge Referrals: PCP,Unknown [Ordering Only Provider] - - Discharge Summary/Plan Comment DC Time >30 min.: No Discharge Summary/Plan Comment: Will discharge Jessica today. Dr. Chairez in to discuss patient's symptoms and work up for pseudotumor cerebri as well. Recommends neurology consultation and ge tting MRI. Patient was to be set up for MRI here tomorrow but patient is unable to have it done here d/t specialty appointments in [place] tomorrow. 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 Discussed pain and will manage with Tylenol. May use [place] for break thru pain. Patient will be discharged today in satisfactory condition. Jessica in agreement with discharge at this time. - General Info Date of Service: 06/25/20 Subjective Update: Jessica is a 34 yo female who was admitted to the hospital from the ED last night with complaints of a headache. She has been having a dull with sharp at times headache to the right side of her head since last Monday. Patient has history of similar headache roughly 3 months ago. Admits it lasted about 8 days at that time. She has been having problems with his blood pressure as well. She currently is taking multiple medications for this. Patient has appointments on Monday with cardiology, nephrology and family medicine in [place]. Patient did have CT scan of the brain with no acute findings. Questioning of demyelinating disease and recommend follow up with neurology or MRI of the brain. Patient continues to have headache. Was given Solu Medrol and started on IV fluids yesterday. Admits to minimal relief. Continues to have a headache today. Denies any nausea or emesis today. States she is really tired. Rates the headache from 6-8 out of 10. Admits to having some blurriness in the right eye which has not worsened. Denies any new onset of neurological deficits. 06/25/2020 Jessica continues to have a dull headache this morning. States the Toradol yesterday did help but she did not like the way it made her feel. She states Tylenol does give her some relief as well. Was able to sleep last night. Blood pressure has been stable since admission. Amlodipine held last night. Functional Status: Reports: Tolerating Diet, Ambulating, Urinating. Denies: New Symptoms - Review of Systems General: Reports: No Symptoms HEENT: Reports: No Symptoms Pulmonary: Reports: No Symptoms Cardiovascular: Reports: No Symptoms Gastrointestinal: Reports: No Symptoms Genitourinary: Reports: No Symptoms Musculoskeletal: Reports: No Symptoms Neurological: Reports: Headache Psychiatric: Reports: No Symptoms - Patient Data Vitals - Most Recent: Last Vital Signs Temp 98 F 06/25/20 04:00 Pulse 56 L 06/25/20 08:29 Resp 16 06/25/20 04:00 BP 129/63 06/25/20 08:29 Pulse Ox 96 06/25/20 04:00 Weight - Most Recent: 238 lb 12.8 oz Lab Results - Last 24 hrs: Laboratory Results - last 24 hr 06/25/20 06/25/20 Range/Units 06:55 06:55 WBC 10.2 H (5.0-10.0) 10^3/uL RBC 3.85 L (4.00-5.50) 10^6/uL Hgb 12.1 (12.0-16.0) g/dL Hct 34.9 L (37.0-47.0) % MCV 90.6 (82.0-94.0) fL MCH 31.4 (27.0-32.0) pg MCHC 34.7 (33.0-38.0) g/dL RDW Coeff of Evangelina 13.2 (11.0-15.0) % Plt Count 239 (150-400) 10^3/uL Neut % (Auto) 73.9 (35-85) % Lymph % (Auto) 19.9 (10-55) % [place] % (Auto) 5.6 (0-16) % Eos % (Auto) 0.3 (0-5) % Baso % (Auto) 0.3 (0-3) % Neut # (Auto) 7.53 H (1.80-7.00) 10^3/uL Lymph # (Auto) 2.03 (1.00-4.80) 10^3/uL [place] # (Auto) 0.57 (0.00-0.80) 10^3/uL Eos # (Auto) 0.03 (0.00-0.45) 10^3/uL Baso # (Auto) 0.03 10^3/uL ESR 30 H (0-20) mm/hr Sodium 142 (136-145) mEq/L Potassium 3.6 (3.5-5.0) mEq/L Chloride 104 (98-106) mEq/L Carbon Dioxide 27 (21-32) mmol/L BUN 16 (7-18) mg/dL Creatinine 1.0 (0.6-1.0) mg/dL Est Cr Clr Drug Dosing 72.68 mL/min Estimated GFR (MDRD) > 60 (>=60) mL/min Glucose 106 H (75-99) mg/dL Calcium 8.8 (8.4-10.1) mg/dL Med Orders - Current: Current Medications Acetaminophen (Acetaminophen 325 Mg Tab) 650 mg PO Q4H PRN PRN Reason: Pain (Mild 1-3)/fever Last Admin: 06/25/20 08:37 Dose: 650 mg Documented by: Amlodipine Besylate (Amlodipine 2.5 Mg Tab Pt Own) 2.5 mg PO BEDTIME [facility] Last Admin: 06/24/20 22:02 Dose: Not Given Documented by: Carvedilol (Carvedilol 12.5 Mg Tab Pt Own) 12.5 mg PO BIDMEALS [facility] Last Admin: 06/25/20 08:29 Dose: 12.5 mg Documented by: Chlorthalidone (Chlorthalidone 25 Mg Tab Pt Own) 25 mg PO DAILY [facility] Last Admin: 06/25/20 08:31 Dose: 25 mg Documented by: Ketorolac Tromethamine (Ketorolac 30 Mg/Ml Sdv) 15 mg IVPUSH Q6H PRN PRN Reason: Headache Stop: 06/29/20 10:45 Last Admin: 06/24/20 12:25 Dose: 15 mg Documented by: Lisinopril 40 Mg Tab (Pt Own) 0 each PO BID [facility] Last Admin: 06/25/20 08:29 Dose: 1 each Documented by: Ondansetron HCl (Ondansetron 4 Mg/2 Ml Sdv) 4 mg IV Q4H PRN PRN Reason: Nausea/Vomiting Temazepam (Temazepam 15 Mg Cap) 15 mg PO BEDTIME PRN PRN Reason: Sleep Last Admin: 06/24/20 20:00 Dose: 15 mg Documented by: Discontinued Medications Amlodipine Besylate (Amlodipine 2.5 Mg Tab Pt Own) 2.5 mg PO DAILY [facility] Last Admin: 06/24/20 20:32 Dose: 2.5 mg Documented by: Clonidine HCl (Clonidine 0.1 Mg Tab) 0.1 mg PO STAT STA Stop: 06/23/20 21:37 Last Admin: 06/23/20 21:38 Dose: 0.1 mg Documented by: Sodium Chloride (Normal Saline) 1,000 mls @ 150 mls/hr IV ASDIRECTED [facility] Last Admin: 06/24/20 01:53 Dose: 150 mls/hr Documented by: Methylprednisolone Sodium Succinate (Methylprednisolone Sodium Succinate 125 Mg/2 Ml Sdv) 62.5 mg IVPUSH Q24H [facility] Last Admin: 06/24/20 01:53 Dose: 62.5 mg Documented by: - Exam General: Reports: Alert, Oriented, Cooperative, No Acute Distress Lungs: Reports: Clear to Auscultation, Normal Respiratory Effort Cardiovascular: Reports: Regular Rate, Regular Rhythm GI/Abdominal Exam: Normal Bowel Sounds, Soft Extremities: Normal Inspection, No Pedal Edema Neurological: Reports: No New Focal Deficit Psy/Mental Status: Reports: Alert, Normal Affect, Normal Mood
[2020-06-25 13:53] VITALS: BP 154/82; PULSE 58
== END 2020-06-25 13:15 | disposition home or self-care (01) ==
LOC: CC.ED 20:57 → CC.MS 23:07 → UNDOADMOB 23:07 → CC.MS 06-24 00:08
PROVIDERS: ADMIT Physician Assistant Medical; ATTEND Family Medicine
DX: G44.019 Episodic cluster headache, not intractable (principal); I15.8 Other secondary hypertension; G93.2 Benign intracranial hypertension; Z87.891 Personal history of nicotine dependence
CPT/HCPCS: 36415; 70450; 80048; 81001; 85025; 85651; 96374; 96375; 99285-25; A9270-GY; G0378; J1885; J2930; J7030

== ENCOUNTER 2020-12-23 18:02 | Emergency (ER) | payer MEDICAID ==
[2020-12-23 18:07] VITALS: PULSE 89
[2020-12-23 18:21] VITALS: BP 145/87
--- NOTE | 2020-12-23 18:37 | EDM.PDOC ---
ED HPI GENERAL MEDICAL PROBLEM - General Chief Complaint: Respiratory Problem Stated Complaint: "feel like crap", covid + for 2 days Time Seen by Provider: 12/23/20 18:10 Source of Information: Reports: Patient History Limitations: Reports: No Limitations - History of Present Illness INITIAL COMMENTS - FREE TEXT/NARRATIVE: Jessica is a 35 year old female who presents to ER with complaints of cough, fatigue, headache and malaise. Started noting sinus congestion and mild cough on Monday, had lost her taste and smell. Was tested on Monday and was positive. Today, is feeling worse. Coughing more frequently. Chest discomfort but denies shortness of breath. Has been able to take fluids in well. No fevers. "mostly concerned about the ongoing cough". Onset: Gradual Duration: Day(s):, Getting Worse Location: Reports: Chest, Generalized Quality: Reports: Ache Severity: Moderate Improves with: Reports: Rest Associated Symptoms: Reports: Cough, Headaches, Loss of Appetite, Malaise, Weakness. Denies: Confusion, Chest Pain, Fever/Chills, Nausea/Vomiting, Shortness of Breath Treatments [employer]OR: Reports: Acetaminophen Generalized Pain Score (Numeric/FACES): 10 - Related Data Allergies Allergy/AdvReac Type Severity Reaction Status Date / Time No Known Allergies Allergy Verified 06/23/20 21:11 Home Meds: Home Meds Chlorthalidone 25 mg PO DAILY 06/18/20 [History] carvediloL [Coreg] 12.5 mg PO BID 06/18/20 [History] lisinopriL [Lisinopril] 20 mg PO BID 06/18/20 [History] Acetaminophen/HYDROcodone [[place] 325-5 MG] 1 tab PO Q6H #12 tablet 06/25/20 [Rx] Benzonatate [Tessalon Perle] 200 mg PO TID PRN #30 capsule 12/23/20 [Rx] Past Medical History Cardiovascular History: Reports: Hypertension Other Cardiovascular History: HTN during [employer] History: Reports: Other (See Below) Other [employer] History: h/o two C-sections Psychiatric History: Reports: Addiction, Depression, Emotional Problems, Psych Hospitalization(s), Suicidal Ideation - Past Surgical History GI Surgical History: Reports: Cholecystectomy, Colonoscopy, Hernia, Abdominal Other GI Surgeries/Procedures: cholecystectomy in 2009 Female Surgical History: Reports: Section Social & Family History - Family History Family Medical History: No Pertinent Family History - Tobacco Use Tobacco Use Status *Q: Never Tobacco User - Caffeine Use Caffeine Use: Reports: Coffee - Recreational Drug Use Recreational Drug Use: No - Living Situation & Occupation Living situation: Reports: with Significant Other ED ROS GENERAL - Review of Systems Review Of Systems: See Below Constitutional: Reports: Malaise, Weakness, Fatigue, Decreased Appetite. Denies: Fever, Chills HEENT: Reports: Rhinitis, Throat Pain. Denies: Ear Pain Respiratory: Reports: Cough. Denies: Shortness of Breath, Sputum Cardiovascular: Denies: Chest Pain, Edema, Lightheadedness Endocrine: Reports: Fatigue GI/Abdominal: Reports: Diarrhea, Decreased Appetite. Denies: Abdominal Pain, Nausea, Vomiting : Reports: No Symptoms Musculoskeletal: Reports: No Symptoms Skin: Reports: No Symptoms Neurological: Reports: Headache, Weakness Psychiatric: Reports: No Symptoms ED EXAM, GENERAL - Physical Exam Exam: See Below Exam Limited By: No Limitations General Appearance: Alert, WD/WN, No Apparent Distress Ears: Normal External Exam, Normal TMs Nose: Normal Inspection, Nasal Drainage Throat/Mouth: Normal Inspection, Normal Oropharynx Head: Normocephalic Neck: Normal Inspection, Supple, Non-Tender Respiratory/Chest: No Respiratory Distress, Lungs Clear, Normal Breath Sounds Cardiovascular: Regular Rate, Rhythm, No Edema GI/Abdominal: Normal Bowel Sounds, Soft, Non-Tender Extremities: Normal Inspection, No Pedal Edema Neurological: Alert, Oriented Skin Exam: Warm, Dry Course - Vital Signs Last Recorded V/S: Last Vital Signs Temp 97.9 F 12/23/20 18:03 Pulse 89 12/23/20 18:03 Resp 18 12/23/20 18:03 BP 145/87 H 12/23/20 18:03 Pulse Ox 98 12/23/20 18:03 - Re-Assessments/Exams Free Text/Narrative Re-Assessment/Exam: Vital signs are normal. Oxygen sat 98%. Lung sounds are clear. Discussed covid symptoms, treatment plan. Is obese, has hypertension, hyperlipidemia. Discussed MABs. Read risks and benefits. Will return tomorrow for this. Departure - Departure Time of Disposition: 18:31 Disposition: Home, Self-Care 01 Condition: Fair Clinical Impression: COVID-19 - Discharge Information *PRESCRIPTION DRUG MONITORING PROGRAM REVIEWED*: No *COPY OF PRESCRIPTION DRUG MONITORING REPORT IN PATIENT ROCIO: No Prescriptions: Benzonatate [Tessalon Perle] 200 mg PO TID PRN #30 capsule PRN Reason: Cough Instructions: COVID-19 Frequently Asked Questions, Symptoms of COVID-19 - CDC (04/20/2020) Referrals: PCP,None [Primary Care Provider] - Forms: ED Department Discharge Additional Instructions: 1. Push fluids 2. Alternate tylenol with ibuprofen for fever or discomfort 3. Lie prone as much as able. Be active. 4. Call [phone] after 0900 to arrange for monoclonal antibodies. Will need to provide a positive covid test result to qualify for this infusion 5. Tessalon pearles 200 mg three times a day as needed 6. Call or return with any questions or concerns. Sepsis Event Note (ED) - Evaluation Sepsis Screening Result: No Definite Risk
== END 2020-12-23 18:50 | disposition home or self-care (01) ==
LOC: CC.ED 18:02
DX: U07.1 COVID-19 (principal); I10 Essential (primary) hypertension; Z79.899 Other long term (current) drug therapy
CPT/HCPCS: 99283

== ENCOUNTER 2022-08-28 12:33 | Emergency (ER) | payer BC, MEDICAID ==
[2022-08-28] MEDS ORDERED: Metoprolol Tartrate 5 MG/5 ML SDV IVPUSH ONE (13:06)
[2022-08-28 13:12] LABS: BASOPHILS ABSOLUTE AUTO 0.03 10^3/uL (0.00-0.50); BASOPHILS PERCENT AUTO 0.4 % (0-1); EOSINOPHILS ABSOLUTE AUTO 0.15 10^3/uL (0.00-1.50); EOSINOPHILS PERCENT AUTO 2.2 % (0-6); HEMOGLOBIN 12.9 g/dL (12.0-16.0); IMMATURE GRAN ABSOLUTE AUTO 0.01 10^3/uL (0.00-0.49); IMMATURE GRAN PERCENT AUTO 0.1 % (0.0-4.9); LYMPHOCYTES ABSOLUTE AUTO 1.49 10^3/uL (0.60-5.00); LYMPHOCYTES PERCENT AUTO 21.9 % (24-44); MEAN CORPUSCULAR HEMOGLOBIN 29.3 pg (27.0-32.0); MEAN CORPUSCULAR HGB CONC 34.9 g/dL (32.0-36.0); MEAN CORPUSCULAR VOLUME 84.1 fL (83.0-97.0); MONOCYTES ABSOLUTE AUTO 0.31 10^3/uL (0.00-1.50); MONOCYTES PERCENT AUTO 4.6 % (0-10); NEUTROPHILS ABSOLUTE AUTO 4.82 x10^3/uL (1.80-8.00); NEUTROPHILS PERCENT AUTO 70.8 % (41-71); PLATELET COUNT,PLT 255 10^3/uL (150-400); WHITE BLOOD CELL COUNT,WBC 6.8 10^3/uL (4.0-11.0)
[2022-08-28 13:24] LABS: ALBUMIN 3.5 g/dL (3.4-5.0); BILIRUBIN TOTAL 0.8 mg/dL (0.0-1.0); CALCIUM 9.1 mg/dL (8.4-10.1); EST CRCL DRUG DOSING (CG) 68.45 mL/min; POTASSIUM,K 4.4 mEq/L (3.5-5.0); PROTEIN TOTAL,TP 7.5 g/dL (6.4-8.2)
[2022-08-28] MEDS ORDERED: cloNIDine 0.1 MG Tab PO STA (14:06)
[2022-08-28 14:33] VITALS: BP 174/109; PULSE 58
[2022-08-28] MEDS ORDERED: Metoprolol Succinate 25 MG Tab.ER PO STA (14:50)
== END 2022-08-28 15:10 | disposition home or self-care (01) ==
LOC: CC.ED 12:33
DX: I15.8 Other secondary hypertension (principal); Z79.899 Other long term (current) drug therapy; Z72.0 Tobacco use
CPT/HCPCS: 36415; 80053; 85025; 93005; 96374; 99283; A9270; J3490; 93010; 99284

== ENCOUNTER 2022-08-31 12:21 | Observation (INO) | payer BC, MEDICAID ==
[2022-08-31 12:51] LABS: APPEARANCE,URINE CLEAR (CLEAR); BILIRUBIN,URINE NEGATIVE (NEGATIVE); COLOR,URINE YELLOW (YELLOW); GLUCOSE,URINE NEGATIVE (NEGATIVE); KETONES,URINE NEGATIVE (NEGATIVE); LEUKOCYTE ESTERASE,URINE NEGATIVE (NEGATIVE); NITRITE,URINE NEGATIVE (NEGATIVE); OCCULT BLOOD,URINE NEGATIVE (NEGATIVE); PH,URINE 5.5 (4.5-8.0); PROTEIN,URINE NEGATIVE (NEGATIVE); UROBILINOGEN,URINE 0.2 EU/dL (0.2-1.0)
[2022-08-31 12:57] LABS: BACTERIA,URINE OCCASIONAL /HPF (NOT SEEN); EPITHELIAL CELLS,URINE OCCASIONAL /HPF (NOT SEEN); RBC,URINE NOT SEEN /HPF (0-5); WBC,URINE 0-5 /HPF (0-5)
[2022-08-31] MEDS ORDERED: Lisinopril 20 MG Tab PO STA (12:59)
[2022-08-31 13:17] LABS: BASOPHILS ABSOLUTE AUTO 0.02 10^3/uL (0.00-0.50); BASOPHILS PERCENT AUTO 0.3 % (0-1); EOSINOPHILS ABSOLUTE AUTO 0.14 10^3/uL (0.00-1.50); EOSINOPHILS PERCENT AUTO 1.9 % (0-6); HEMATOCRIT 41.2 % (37.0-47.0); HEMOGLOBIN 14.1 g/dL (12.0-16.0); IMMATURE GRAN ABSOLUTE AUTO 0.01 10^3/uL (0.00-0.49); IMMATURE GRAN PERCENT AUTO 0.1 % (0.0-4.9); LYMPHOCYTES PERCENT AUTO 20.5 % (24-44); MEAN CORPUSCULAR HEMOGLOBIN 29.1 pg (27.0-32.0); MEAN CORPUSCULAR HGB CONC 34.2 g/dL (32.0-36.0); MEAN CORPUSCULAR VOLUME 85.1 fL (83.0-97.0); MONOCYTES ABSOLUTE AUTO 0.32 10^3/uL (0.00-1.50); MONOCYTES PERCENT AUTO 4.4 % (0-10); NEUTROPHILS ABSOLUTE AUTO 5.32 x10^3/uL (1.80-8.00); NEUTROPHILS PERCENT AUTO 72.8 % (41-71); PLATELET COUNT,PLT 267 10^3/uL (150-400); RED BLOOD CELL COUNT 4.84 x10^6/uL (4.00-5.50); WHITE BLOOD CELL COUNT,WBC 7.3 10^3/uL (4.0-11.0)
[2022-08-31] MEDS ORDERED: Ondansetron 4 MG/2 ML SDV IV PRN (13:23)
[2022-08-31] MEDS ORDERED: hydrALAZINE 20 MG/ML SDV IVPUSH PRN (13:23)
[2022-08-31] MEDS ORDERED: Ondansetron 4 MG Tab.DIS PO PRN (13:23)
[2022-08-31] MEDS ORDERED: Sodium Chloride 0.9% 10 ML Syringe FLUSH PRN (13:23)
[2022-08-31] MEDS ORDERED: Acetaminophen 325 MG Tab PO PRN (13:23)
[2022-08-31 13:31] LABS: ALBUMIN 3.8 g/dL (3.4-5.0); BILIRUBIN TOTAL 0.8 mg/dL (0.0-1.0); CALCIUM 9.5 mg/dL (8.4-10.1); CREATININE 0.9 mg/dL (0.6-1.0); EST CRCL DRUG DOSING (CG) 79.25 mL/min; MAGNESIUM 1.9 mg/dL (1.8-2.4); POTASSIUM,K 4.7 mEq/L (3.5-5.0); PROTEIN TOTAL,TP 7.9 g/dL (6.4-8.2)
[2022-08-31] MEDS ORDERED: Ketorolac 30 MG/ML SDV IVPUSH ONE (15:58)
[2022-08-31] MEDS: Spironolactone 25 MG Tab PO SCH (16:00)
[2022-08-31] MEDS ORDERED: Sodium Chloride 0.9% 1,000 ML IV ONE (16:40)
[2022-08-31] MEDS: Lisinopril 20 MG Tab PO SCH (19:41)
[2022-09-01 07:31] LABS: BASOPHILS ABSOLUTE AUTO 0.02 10^3/uL (0.00-0.50); BASOPHILS PERCENT AUTO 0.2 % (0-1); EOSINOPHILS ABSOLUTE AUTO 0.17 10^3/uL (0.00-1.50); EOSINOPHILS PERCENT AUTO 1.9 % (0-6); HEMATOCRIT 35.8 % (37.0-47.0); HEMOGLOBIN 12.3 g/dL (12.0-16.0); IMMATURE GRAN ABSOLUTE AUTO 0.02 10^3/uL (0.00-0.49); IMMATURE GRAN PERCENT AUTO 0.2 % (0.0-4.9); LYMPHOCYTES ABSOLUTE AUTO 1.69 10^3/uL (0.60-5.00); LYMPHOCYTES PERCENT AUTO 19.2 % (24-44); MEAN CORPUSCULAR HEMOGLOBIN 29.6 pg (27.0-32.0); MEAN CORPUSCULAR HGB CONC 34.4 g/dL (32.0-36.0); MEAN CORPUSCULAR VOLUME 86.3 fL (83.0-97.0); MONOCYTES ABSOLUTE AUTO 0.46 10^3/uL (0.00-1.50); MONOCYTES PERCENT AUTO 5.2 % (0-10); NEUTROPHILS ABSOLUTE AUTO 6.46 x10^3/uL (1.80-8.00); NEUTROPHILS PERCENT AUTO 73.3 % (41-71); PLATELET COUNT,PLT 238 10^3/uL (150-400); RED BLOOD CELL COUNT 4.15 x10^6/uL (4.00-5.50); WHITE BLOOD CELL COUNT,WBC 8.8 10^3/uL (4.0-11.0)
[2022-09-01] MEDS: Spironolactone 25 MG Tab PO SCH (07:38)
[2022-09-01] MEDS: Lisinopril 20 MG Tab PO SCH ×3 (07:38→20:18)
[2022-09-01 07:57] LABS: CALCIUM 8.6 mg/dL (8.4-10.1); EST CRCL DRUG DOSING (CG) 71.33 mL/min; MAGNESIUM 1.7 mg/dL (1.8-2.4); POTASSIUM,K 4.4 mEq/L (3.5-5.0)
[2022-09-01] MEDS ORDERED: Metoprolol Succinate 25 MG Tab.ER PO SCH (08:00)
[2022-09-01] MEDS ORDERED: Iopamidol 755 Mg/ML 100 ML Bottle IVPUSH ONE ×2 (10:22→11:54)
[2022-09-01] MEDS: Enoxaparin 40 MG/0.4 ML Syringe SUBCUT SCH (14:11)
[2022-09-01] MEDS: NIFEdipine 30 MG Tab.ER PO SCH (14:12)
[2022-09-02 07:42] LABS: BASOPHILS ABSOLUTE AUTO 0.02 10^3/uL (0.00-0.50); BASOPHILS PERCENT AUTO 0.3 % (0-1); EOSINOPHILS ABSOLUTE AUTO 0.15 10^3/uL (0.00-1.50); EOSINOPHILS PERCENT AUTO 2.2 % (0-6); HEMATOCRIT 34.7 % (37.0-47.0); HEMOGLOBIN 11.9 g/dL (12.0-16.0); IMMATURE GRAN ABSOLUTE AUTO 0.01 10^3/uL (0.00-0.49); IMMATURE GRAN PERCENT AUTO 0.1 % (0.0-4.9); LYMPHOCYTES ABSOLUTE AUTO 1.92 10^3/uL (0.60-5.00); LYMPHOCYTES PERCENT AUTO 27.9 % (24-44); MEAN CORPUSCULAR HEMOGLOBIN 29.5 pg (27.0-32.0); MEAN CORPUSCULAR HGB CONC 34.3 g/dL (32.0-36.0); MEAN CORPUSCULAR VOLUME 86.1 fL (83.0-97.0); MONOCYTES ABSOLUTE AUTO 0.35 10^3/uL (0.00-1.50); MONOCYTES PERCENT AUTO 5.1 % (0-10); NEUTROPHILS ABSOLUTE AUTO 4.44 x10^3/uL (1.80-8.00); NEUTROPHILS PERCENT AUTO 64.4 % (41-71); PLATELET COUNT,PLT 220 10^3/uL (150-400); RED BLOOD CELL COUNT 4.03 x10^6/uL (4.00-5.50); WHITE BLOOD CELL COUNT,WBC 6.9 10^3/uL (4.0-11.0)
[2022-09-02] MEDS: NIFEdipine 30 MG Tab.ER PO SCH (07:53)
[2022-09-02] MEDS: Lisinopril 20 MG Tab PO SCH (07:54)
[2022-09-02] MEDS: Spironolactone 25 MG Tab PO SCH (07:54)
[2022-09-02 08:03] LABS: ALBUMIN 3.2 g/dL (3.4-5.0); BILIRUBIN TOTAL 0.5 mg/dL (0.0-1.0); CALCIUM 8.8 mg/dL (8.4-10.1); CREATININE 0.9 mg/dL (0.6-1.0); EST CRCL DRUG DOSING (CG) 79.25 mL/min; MAGNESIUM 1.8 mg/dL (1.8-2.4); POTASSIUM,K 4.3 mEq/L (3.5-5.0); PROTEIN TOTAL,TP 6.7 g/dL (6.4-8.2)
[2022-09-02 11:43] VITALS: BP 179/105
[2022-09-02 12:23] VITALS: PULSE 63
[2022-09-02] MEDS: Enoxaparin 40 MG/0.4 ML Syringe SUBCUT SCH (13:04)
== END 2022-09-02 12:30 | disposition home or self-care (01) ==
LOC: CC.ED 12:21 → SUPCPDRO 12:21 → UNDOADMOB 13:13 → CC.MS 13:13
PROVIDERS: ADMIT Nurse Practitioner; ATTEND Nurse Practitioner
DX: I16.0 Hypertensive urgency (principal); R00.2 Palpitations; F32.A Depression, unspecified; Z90.49 Acquired absence of other specified parts of digestive tract; Z79.899 Other long term (current) drug therapy
CPT/HCPCS: 36415; 70496; 70498; 80048; 80053; 81001; 83735; 84484; 85025; 93005; 93010; 96372; 96374; 96375; 99223; 99233; 99238; 99285; A9270-GY; G0378; J0360; J1650; J1885; J7030; Q9967

== ENCOUNTER 2022-12-18 11:15 | Emergency (ER) | payer BC, MEDICAID ==
[2022-12-18] MEDS ORDERED: methylPREDNISolone Acetate 80 MG/ML SDV IM ONE (11:29)
[2022-12-18 12:43] VITALS: BP 157/92; PULSE 89
== END 2022-12-18 11:40 | disposition home or self-care (01) ==
LOC: CC.ED 11:15
DX: J06.9 Acute upper respiratory infection, unspecified (principal); I10 Essential (primary) hypertension; Z79.899 Other long term (current) drug therapy
CPT/HCPCS: 96372; 99283; J1040

== ENCOUNTER 2023-01-15 06:39 | Emergency (ER) | payer BC, MEDICAID ==
[2023-01-15 07:03] VITALS: BP 160/105; PULSE 90
[2023-01-15] MEDS ORDERED: Sodium Chloride 0.9% 1,000 ML IV ONE (07:09)
[2023-01-15] MEDS ORDERED: Sodium Chloride 0.9% 10 ML Syringe FLUSH PRN (07:10)
[2023-01-15 07:16] LABS: BASOPHILS ABSOLUTE AUTO 0.02 10^3/uL (0.00-0.50); BASOPHILS PERCENT AUTO 0.2 % (0-1); EOSINOPHILS ABSOLUTE AUTO 0.03 10^3/uL (0.00-1.50); EOSINOPHILS PERCENT AUTO 0.3 % (0-6); HEMATOCRIT 37.5 % (37.0-47.0); HEMOGLOBIN 13.2 g/dL (12.0-16.0); IMMATURE GRAN ABSOLUTE AUTO 0.05 10^3/uL (0.00-0.49); IMMATURE GRAN PERCENT AUTO 0.5 % (0.0-4.9); LYMPHOCYTES ABSOLUTE AUTO 2.84 10^3/uL (0.60-5.00); LYMPHOCYTES PERCENT AUTO 28.1 % (24-44); MEAN CORPUSCULAR HEMOGLOBIN 30.8 pg (27.0-32.0); MEAN CORPUSCULAR HGB CONC 35.2 g/dL (32.0-36.0); MEAN CORPUSCULAR VOLUME 87.4 fL (83.0-97.0); MONOCYTES ABSOLUTE AUTO 0.47 10^3/uL (0.00-1.50); MONOCYTES PERCENT AUTO 4.6 % (0-10); NEUTROPHILS ABSOLUTE AUTO 6.71 x10^3/uL (1.80-8.00); NEUTROPHILS PERCENT AUTO 66.3 % (41-71); PLATELET COUNT,PLT 253 10^3/uL (150-400); RED BLOOD CELL COUNT 4.29 x10^6/uL (4.00-5.50); WHITE BLOOD CELL COUNT,WBC 10.1 10^3/uL (4.0-11.0)
[2023-01-15] MEDS ORDERED: Aluminum Hydroxide/Magnesium Hydroxide/Simethicone Susp 30 ML Cup PO ONE ×2 (07:20→09:33)
[2023-01-15 07:37] LABS: APPEARANCE,URINE CLEAR (CLEAR); BILIRUBIN,URINE NEGATIVE (NEGATIVE); COLOR,URINE YELLOW (YELLOW); GLUCOSE,URINE NEGATIVE (NEGATIVE); KETONES,URINE NEGATIVE (NEGATIVE); LEUKOCYTE ESTERASE,URINE NEGATIVE (NEGATIVE); NITRITE,URINE NEGATIVE (NEGATIVE); OCCULT BLOOD,URINE TRACE-INTACT (NEGATIVE); PH,URINE 5.5 (4.5-8.0); PROTEIN,URINE NEGATIVE (NEGATIVE); UROBILINOGEN,URINE 0.2 EU/dL (0.2-1.0)
[2023-01-15 07:40] LABS: ALBUMIN 3.7 g/dL (3.4-5.0); BILIRUBIN TOTAL 0.6 mg/dL (0.0-1.0); C-REACTIVE PROTEIN 0.35 mg/dL (<=0.30); CALCIUM 8.6 mg/dL (8.4-10.1); CREATININE 0.8 mg/dL (0.6-1.0); EST CRCL DRUG DOSING (CG) 88.32 mL/min; MAGNESIUM 1.9 mg/dL (1.8-2.4); POTASSIUM,K 3.1 mEq/L (3.5-5.0); PROTEIN TOTAL,TP 7.7 g/dL (6.4-8.2)
[2023-01-15 07:45] LABS: BACTERIA,URINE OCCASIONAL /HPF (NOT SEEN); RBC,URINE 0-5 /HPF (0-5); SQUAMOUS EPITHELIAL CELLS,UR MODERATE /HPF (NOT SEEN); WBC,URINE 0-5 /HPF (0-5)
[2023-01-15] MEDS ORDERED: Potassium Chloride 20 MEQ Tab.ER PO ONE (08:01)
== END 2023-01-15 10:25 | disposition home or self-care (01) ==
LOC: CC.ED 06:39
DX: E87.6 Hypokalemia (principal); F10.129 Alcohol abuse with intoxication, unspecified; R12 Heartburn; R94.5 Abnormal results of liver function studies; I10 Essential (primary) hypertension; Z79.899 Other long term (current) drug therapy
CPT/HCPCS: 36415; 71045; 80053; 80307; 81001; 81025; 83690; 83735; 84484; 85025; 85379; 86140; 93005; 93010; 96360; 99284; 99285-25; A9270-GY; J7030

== ENCOUNTER 2023-10-07 14:17 | Emergency (ER) | payer BC, MEDICAID ==
[2023-10-07 14:26] VITALS: PULSE 67
[2023-10-07] MEDS ORDERED: Take Home: predniSONE 20 MG, 2 Tab Pack ONE (15:05)
[2023-10-07] MEDS: Take Home: predniSONE 20 MG, 2 Tab Pack PO ONE (15:06)
[2023-10-07] MEDS: Take Home: Amoxicillin/Clavulanate K 875-125 MG Tab, 2 Tab Pack PO ONE (15:07)
[2023-10-07 15:55] VITALS: BP 135/93
== END 2023-10-07 15:12 | disposition home or self-care (01) ==
LOC: CC.ED 14:17
DX: H65.91 Unspecified nonsuppurative otitis media, right ear (principal); J32.9 Chronic sinusitis, unspecified; I10 Essential (primary) hypertension; F17.200 Nicotine dependence, unspecified, uncomplicated; Z79.899 Other long term (current) drug therapy; Z90.49 Acquired absence of other specified parts of digestive tract
CPT/HCPCS: 99282; A9270-GY; J7512

== ENCOUNTER 2023-11-12 14:25 | Emergency (ER) | payer BC, MEDICAID ==
[2023-11-12 14:47] LABS: BASOPHILS ABSOLUTE AUTO 0.03 10^3/uL (0.00-0.50); BASOPHILS PERCENT AUTO 0.4 % (0-1); EOSINOPHILS ABSOLUTE AUTO 0.07 10^3/uL (0.00-1.50); EOSINOPHILS PERCENT AUTO 0.9 % (0-6); HEMATOCRIT 38.7 % (37.0-47.0); HEMOGLOBIN 13.5 g/dL (12.0-16.0); IMMATURE GRAN ABSOLUTE AUTO 0.01 10^3/uL (0.00-0.49); IMMATURE GRAN PERCENT AUTO 0.1 % (0.0-4.9); LYMPHOCYTES ABSOLUTE AUTO 1.69 10^3/uL (0.60-5.00); LYMPHOCYTES PERCENT AUTO 22.3 % (24-44); MEAN CORPUSCULAR HEMOGLOBIN 31.8 pg (27.0-32.0); MEAN CORPUSCULAR HGB CONC 34.9 g/dL (32.0-36.0); MEAN CORPUSCULAR VOLUME 91.3 fL (83.0-97.0); MONOCYTES ABSOLUTE AUTO 0.64 10^3/uL (0.00-1.50); MONOCYTES PERCENT AUTO 8.5 % (0-10); NEUTROPHILS ABSOLUTE AUTO 5.13 x10^3/uL (1.80-8.00); NEUTROPHILS PERCENT AUTO 67.8 % (41-71); PLATELET COUNT,PLT 247 10^3/uL (150-400); RED BLOOD CELL COUNT 4.24 x10^6/uL (4.00-5.50); WHITE BLOOD CELL COUNT,WBC 7.6 10^3/uL (4.0-11.0)
[2023-11-12 15:05] LABS: ALANINE AMINOTRANSFERASE,ALT 24 U/L (12-78); ALBUMIN 3.7 g/dL (3.4-5.0); ALKALINE PHOSPHATASE 44 U/L (46-116); ASPARTATE AMNIOTRANSFERASE,AST 21 U/L (15-37); BILIRUBIN TOTAL 0.9 mg/dL (0.0-1.0); BLOOD UREA NITROGEN,BUN 17 mg/dL (7-18); CALCIUM 9.1 mg/dL (8.4-10.1); CARBON DIOXIDE,CO2 28 mmol/L (21-32); CHLORIDE,CL 104 mEq/L (98-106); CREATININE 1.1 mg/dL (0.6-1.0); GLUCOSE RANDOM 100 mg/dL (75-99); MAGNESIUM 2.2 mg/dL (1.8-2.4); POTASSIUM,K 3.8 mEq/L (3.5-5.0); PROTEIN TOTAL,TP 7.6 g/dL (6.4-8.2); SODIUM,NA 142 mEq/L (136-145)
[2023-11-12 15:06] LABS: ESTIMATED GFR 67 mL/min (>=60)
[2023-11-12 15:42] LABS: COLOR,URINE RED (YELLOW)
[2023-11-12 15:43] LABS: APPEARANCE,URINE SLIGHTLY CLOUDY (CLEAR); BACTERIA,URINE NOT SEEN /HPF (NOT SEEN); BILIRUBIN,URINE NEGATIVE (NEGATIVE); EPITHELIAL CELLS,URINE NOT SEEN /HPF (NOT SEEN); GLUCOSE,URINE NEGATIVE (NEGATIVE); KETONES,URINE NEGATIVE (NEGATIVE); LEUKOCYTE ESTERASE,URINE NEGATIVE (NEGATIVE); MUCUS,URINE NOT SEEN /HPF (NOT SEEN); NITRITE,URINE NEGATIVE (NEGATIVE); OCCULT BLOOD,URINE LARGE (NEGATIVE); PROTEIN,URINE 30 mg/dL (NEGATIVE); RBC,URINE 50-75 /HPF (0-5); UROBILINOGEN,URINE 0.2 EU/dL (0.2-1.0); WBC,URINE NOT SEEN /HPF (0-5)
[2023-11-12 15:47] VITALS: PULSE 67
[2023-11-12] MEDS: hydrALAZINE 20 MG/ML SDV IVPUSH ONE (15:47)
[2023-11-12] MEDS: Lisinopril 20 MG Tab PO STA (17:04)
[2023-11-12] MEDS: Cefuroxime 250 MG Tab PO STA (18:26)
[2023-11-12 19:50] VITALS: BP 138/89
[2023-11-13] MEDS ORDERED: Cefuroxime 250 MG Tab PO SCH (08:00)
== END 2023-11-12 18:50 | disposition home or self-care (01) ==
LOC: CC.ED 14:25
DX: J01.01 Acute recurrent maxillary sinusitis (principal); I10 Essential (primary) hypertension; Z79.82 Long term (current) use of aspirin; Z79.899 Other long term (current) drug therapy; Z90.49 Acquired absence of other specified parts of digestive tract
CPT/HCPCS: 36415; 70450; 80053; 81001; 81025; 83735; 85025; 96374; 99284-25; A9270-GY; J0360